=== PATIENT | female | born 1970 | race Caucasian/White ===

== ENCOUNTER 2017-12-09 15:18 | Emergency (ER) | payer OTHER ==
[~2017-12-09] VITALS: Ht 160 cm; Wt 74.5 kg
[2017-12-09 15:23] VITALS: TEMP 36.7; Ht 160 cm; Wt 74.5 kg
[2017-12-09] MEDS ORDERED: LEVO100T7 PO (15:43)
[2017-12-09] MEDS ORDERED: LEVO112T4 PO (15:43)
[2017-12-09] MEDS ORDERED: MULT-506 PO (15:48)
[2017-12-09] MEDS ORDERED: CALC500C3 PO (15:48)
[2017-12-09] MEDS ORDERED: ASCO100061 PO (15:48)
[2017-12-09] MEDS ORDERED: FERR1TAB23 PO (15:48)
[2017-12-09] MEDS ORDERED: B-COTAB53 PO (15:48)
[2017-12-09] MEDS ORDERED: CEPH500C PO (16:37)
[2017-12-09 16:47] VITALS: BP 115/72; PULSE 75; O2SAT 98
--- NOTE | 2017-12-09 17:26 | EMERGENCY ROOM VISIT NOTE ---
History First contact with patient: 15:38 Chief Complaint: BURN (MINOR) Stated Complaint: POSSIBLE CHEMICAL BURN ON HAND/FINGERS,SWOLLEN,JOAO History of Present Illness The patient is a 47 year old female who presents to the Emergency Room with complaints of swelling, pain and bruising of the fingertips. The patient reports that she was pruning roses Friday, and sustained multiple puncture wounds to her fingers from the thorns. The following morning, she was working with art supplies, and got a mixture of Clorox and soda gemma on her hands. She did not wear gloves, and did not think of the wounds on her fingers. Within a few hours, she started to experience burning, numbness and swelling of the fingertips. She reports that the swelling, redness and pain has worsened since yesterday morning. She also reports that the left thumb looks bruised. She denies any pain extending into the base of the fingers or hand. She rates her discomfort an 8 out of 10. In his immunization is up-to- date. Review of Systems 10 system review was performed and was negative except for pertinent positives and negatives as indicated in history of present illness Past Medical/Surgical History Medical Problems: (1) Colon polyp (2) Hypothyroidism Surgical Problems: (1) History of colonoscopy (2) History of umbilical hernia repair Family History FH: cancer FH: diabetes mellitus FH: hypertension Social History Smoking Status: Never Smoker Alcohol Use: none Marital Status: Housing Status: lives with family Occupation Status: employed Current/Historical Medications Scheduled Ascorbic Acid (Ascorbic Acid), 1 TAB PO DAILY B-Complex W/ Folic Acid (B Complex), 1 TAB PO DAILY Calcium Carbonate (Tums), 1 TAB PO DAILY Cephalexin Monohydrate (Keflex), 500 MG PO QID Ferrous Sulfate (Iron), 1 TAB PO DAILY Levothyroxine Sodium (Levothyroxine Sodium), 100 MCG PO UD Levothyroxine Sodium (Levothyroxine Sodium), 112 MCG PO UD Multivitamin (Multivitamin), 1 TAB PO DAILY Physical Exam Vital Signs Date Time Temp Pulse Resp B/P (MAP) Pulse Ox O2 Delivery O2 Flow Rate FiO2 12/09/17 16:47 75 18 115/72 98 12/09/17 15:27 97 Room Air 12/09/17 15:23 36.7 72 18 136/84 97 Room Air Physical Exam CONSTITUTIONAL: Healthy and well nourished. Alert and oriented X 3 with positive affect. Patient appears in mild discomfort. HEENT: Normocephalic, atraumatic. Pupils equal, round and reactive. NECK: Full active range of motion without discomfort. RESPIRATORY: Clear to auscultation bilaterally with no wheezing, crackles, rhonchi or stridor. CARDIOVASCULAR: Regular rate and rhythm with no murmurs, rubs or gallops. MUSCULOSKELETAL: Examination of all fingertips shows mild erythema. The skin is shiny in appearance. Capillary refill is brisk, between 0.5 and 1 second of all fingers. The left thumb is more edematous than the other fingers, and also has evidence for more puncture wounds than the other fingers. They are moderately tender to palpation. There is no skin sloughing. The patient has no tenderness to palpation proximal to the IP joint of the thumbs, or DIP joints of the other fingers. INTEGUMENTARY: No rash or other significant dermatologic conditions noted. NEUROLOGIC: No focal neurologic deficits noted. Medical Decision & Procedures ED Course Patient history and physical exam were performed. Nurse's notes were reviewed. Vital signs were reviewed and were normal. The patient refused any analgesics. I discussed the case initially with Dr. Hazel, ED attending physician, who recommended consultation with the [facility]. I spoke with Dr. Taylor who indicated that he does not suspect that the patient absorb enough of the basic solution to cause any significant injury, especially if the patient does not have any blistering or sloughing of the tissue. He reported that he would be more concerned of infection of the fingertips. He recommended antibiotic treatment and follow-up with a hand surgeon. The patient will be provided a prescription for Keflex, and was provided contact information for Dr. Snider, hand surgeon with [facility]. The patient was encouraged alternate ibuprofen and Tylenol as needed for pain. The patient was happy with plan of care, voiced understanding of all discharge instructions, refused any analgesics while in the emergency department, and rated her pain a 5 out of 10 at the conclusion of my exam. Medical Decision Medication Reconcilliation Current Medication List: was personally reviewed by me Blood Pressure Screening Patient's blood pressure: Normal blood pressure Impression Primary Impression: Bilateral hand infection Departure Information Prescriptions Cephalexin Monohydrate (Keflex) 500 Mg Cap 500 MG PO QID for 7 Days, #28 CAP Prov: [place], Chris Garth,PA 12/09/17 Referrals No Doctor, Assigned (PCP) Patient Instructions [facility]
== END 2017-12-09 16:47 | disposition home or self-care (01) ==
LOC: C.EDB 15:19 → C.EDD 16:47
DX: L08.9 Local infection of the skin and subcutaneous tissue, unspecified (principal); Z86.010 Personal history of colon polyps; E03.9 Hypothyroidism, unspecified; Z80.9 Family history of malignant neoplasm, unspecified; Z83.3 Family history of diabetes mellitus; Z82.49 Family history of ischemic heart disease and other diseases of the circulatory system; Z79.899 Other long term (current) drug therapy